=== PATIENT | male | born 1950 ===

== ENCOUNTER 2019-05-11 09:15 | Inpatient (IN) | payer OTHER ==
[~2019-05-11] VITALS: Ht 195.6 cm; Wt 136.1 kg
[2019-05-11] MEDS ORDERED: COZAAR100 MG PO (11:16)
[2019-05-11] MEDS ORDERED: HYDRALAZINE HCL25 MG PO (11:16)
[2019-05-11] MEDS ORDERED: CARVEDILOL ER40 MG PO (11:17)
[2019-05-11] MEDS ORDERED: TERAZOSIN HCL10 MG PO (11:17)
[2019-05-11] MEDS ORDERED: SIMVASTATIN80 MG PO (11:17)
[2019-05-11] MEDS ORDERED: ALLOPURINOL300 MG PO (11:18)
[2019-05-11] MEDS ORDERED: FOLIC ACID0.8 M1 PO (11:19)
[2019-05-11] MEDS ORDERED: GABAPENTIN800 M1 PO (11:19)
[2019-05-11] MEDS ORDERED: LEVO-T75 MCG PO (11:19)
[2019-05-11] MEDS ORDERED: PLAVIX75 MG PO (11:19)
[2019-05-11] MEDS ORDERED: ZANTAC150 MG PO (11:19)
[2019-05-11] MEDS ORDERED: BAYER THERAPY325 MG PO (11:20)
[2019-05-11] MEDS ORDERED: ROCALTROL0.25 MCG PO (11:20)
[2019-05-11] MEDS ORDERED: PEROXETINE PO (11:21)
[2019-05-11] MEDS ORDERED: VITAMIN D10000 UNIT PO (11:22)
[2019-05-11] MEDS ORDERED: FEOSOL325 MG PO (11:22)
[2019-05-11] MEDS ORDERED: FUSION PLUS CA1 EACH PO (11:22)
[2019-05-11] MEDS ORDERED: HUMULIN R500 UNIT/2 (11:23)
[2019-05-16] MEDS ORDERED: PAXIL20 MG PO (08:14)
[2019-05-16] MEDS ORDERED: SIMVASTATIN40 MG PO (08:24)
[2019-05-16] MEDS ORDERED: RANITIDINE HCL300 MG PO (08:25)
[2019-05-16] MEDS ORDERED: FOLIC ACID1 MG PO (08:26)
[2019-05-16] MEDS ORDERED: SODIUM BICARBO650 MG (08:30)
[2019-05-16] MEDS ORDERED: PERCOCET 5-3251 EACH PO (11:00)
[2019-05-16] MEDS ORDERED: MEDROLPACK PO (11:00)
[2019-05-16] MEDS ORDERED: COLACE100 MG PO (11:00)
[2019-05-16] MEDS ORDERED: CLONAZEPAM1 MG PO (11:00)
== END 2019-05-17 13:19 | disposition home or self-care (01) | DRG 472 ==
LOC: SURG 05-16 04:20 → O/R 05-16 04:20 → SURG 05-16 11:40
PROVIDERS: ADMIT Orthopaedic Surgery Orthopaedic Surgery of the Spine
PROC: 0RG2070 Fusion of 2 or more Cervical Vertebral Joints with Autologous Tissue Substitute, Anterior Approach, Anterior Column, Open Approach (ICD-10-PCS; 2019-05-16)
PROC: 0RT30ZZ Resection of Cervical Vertebral Disc, Open Approach (ICD-10-PCS; 2019-05-16)
PROC: 07DS3ZZ Extraction of Vertebral Bone Marrow, Percutaneous Approach (ICD-10-PCS; 2019-05-16)
PROC: 0RG20A0 Fusion of 2 or more Cervical Vertebral Joints with Interbody Fusion Device, Anterior Approach, Anterior Column, Open Approach (ICD-10-PCS; principal; 2019-05-16 07:00)
DX: M50.021 Cervical disc disorder at C4-C5 level with myelopathy (principal); M47.12 Other spondylosis with myelopathy, cervical region; I10 Essential (primary) hypertension; E03.8 Other specified hypothyroidism; E11.9 Type 2 diabetes mellitus without complications; Z79.4 Long term (current) use of insulin